=== PATIENT | male | born 1960 | race Caucasian/White ===

== ENCOUNTER 2019-06-22 10:00 | Inpatient (IN) | payer OTHER ==
[~2019-06-22] VITALS: Ht 182.9 cm; Wt 104.3 kg
[~2019-06-22 10:00] MED LIST: BUPR75TA5 PO; ENOX40SY4 SQ; ESCI20TA10 PO; HYDR-3237 PO; MULT-208 PO
[2019-06-22] MEDS ORDERED: BACITRACIN 50,000 UNIT ONE (10:32)
[2019-06-22] MEDS ORDERED: BUPIVACAINE/PF 0.5% ONE (10:32)
[2019-06-22] MEDS ORDERED: THROMBIN 5,000 UNIT VIAL TP ONE (10:32)
[2019-06-22] MEDS ORDERED: EPINEPHRINE 1 MG/ML, 1ML ONE (10:32)
[2019-06-22] MEDS ORDERED: LACTATED RINGERS 1,000 ML IV ONE (10:41)
[2019-06-22] MEDS ORDERED: GABAPENTIN 300 MG CAPSULE PO STA (10:42)
[2019-06-22] MEDS ORDERED: ACETAMINOPHEN 500 MG TABLET PO STA (10:42)
[2019-06-22 11:02] VITALS: BP 144/81
[2019-06-22] MEDS ORDERED: POTASSIUM PO (11:18)
[2019-06-22] MEDS ORDERED: ALBU8.5H8 INH (11:18)
[2019-06-22] MEDS ORDERED: NAPR220T77 PO (11:18)
[2019-06-22] MEDS ORDERED: [UNRECOGNIZED DRUG - OTHER] PO (11:18)
[2019-06-22] MEDS ORDERED: MAGN400T36 PO (11:18)
[2019-06-22] MEDS ORDERED: MIDAZOLAM 1 MG/ML, 2ML ONE (12:11)
[2019-06-22] MEDS ORDERED: FENTANYL PF 250 MCG/5ML ONE ×2 (12:11→13:41)
[2019-06-22] MEDS ORDERED: HYDROmorphone 2 MG/ML, 1ML IVPush PRN (13:30)
[2019-06-22] MEDS ORDERED: FENTANYL PF 100 MCG/2ML IV PRN (13:30)
[2019-06-22] MEDS ORDERED: PROMETHAZINE 25 MG/ML, 1ML IV PRN (13:30)
[2019-06-22] MEDS ORDERED: ACETAMINOPHEN 325 MG TABLET PO PRN ×2 (13:30→19:00)
[2019-06-22] MEDS ORDERED: LABETALOL 5MG/ML, 20ML IV PRN (13:30)
[2019-06-22] MEDS ORDERED: ALBUTEROL SULFATE 2.5 MG/3 ML NPPB PRN ×2 (13:30→18:30)
[2019-06-22] MEDS ORDERED: hydrALAzine 20 MG/ML, 1ML IV PRN (13:30)
[2019-06-22] MEDS ORDERED: MEPERIDINE/PF 25MG/0.5ML IVPush PRN (13:30)
[2019-06-22] MEDS ORDERED: KETOROLAC 30 MG/1 ML IV PRN (13:30)
[2019-06-22] MEDS ORDERED: OXYcodone 5 MG/5 ML ORAL.SOL UDC PO PRN (13:30)
[2019-06-22] MEDS ORDERED: DIAZEPAM 5 MG/ML, 2ML IVPush PRN (13:30)
[2019-06-22] MEDS ORDERED: GLYCOPYRROLATE 0.2MG/1ML, 5ML ONE (14:04)
[2019-06-22] MEDS ORDERED: ONDANSETRON 2MG/ML, 2ML ONE (14:04)
[2019-06-22] MEDS ORDERED: DEXAMETHASONE 4 MG/ML, 1ML ONE (14:04)
[2019-06-22] MEDS ORDERED: CEFAZOLIN 1,000 MG ONE (14:04)
[2019-06-22] MEDS ORDERED: ROCURONIUM 10MG/ML,5ML ONE (14:04)
[2019-06-22] MEDS ORDERED: NEOSTIGMINE 1 MG/ML, 10ML ONE (14:04)
[2019-06-22] MEDS ORDERED: SUCCINYLCHOLINE 20 MG/ML, 10ML ONE (14:04)
[2019-06-22] MEDS ORDERED: PROPOFOL 10 MG/ML, 20ML ONE (14:04)
[2019-06-22] MEDS ORDERED: DIAZEPAM 5 MG/ML, 2ML ONE (16:17)
[2019-06-22] MEDS ORDERED: PROMETHAZINE 25 MG/ML, 1ML ONE (16:43)
[2019-06-22] MEDS ORDERED: METHOCARBAMOL 1,000 MG in DEXTROSE 5% 100 ML IV ONE ×2 (17:00→19:30)
[2019-06-22] MEDS ORDERED: BISACODYL 10 MG SUPP PR PRN (18:30)
[2019-06-22] MEDS ORDERED: DIPHENHYDRAMINE 25 MG CAPSULE PO PRN (18:30)
[2019-06-22] MEDS ORDERED: morphine SULFATE 10 MG/ML, 1ML IV PRN (18:30)
[2019-06-22] MEDS ORDERED: PROMETHAZINE 25 MG/ML, 1ML IM PRN (18:30)
[2019-06-22] MEDS ORDERED: MAGNESIUM HYDROXIDE 8%, 30ML UDC PO PRN (18:30)
[2019-06-22] MEDS ORDERED: HYDROcodone/APAP 10/325 MG TABLET PO PRN (18:30)
[2019-06-22] MEDS ORDERED: ONDANSETRON 2MG/ML, 2ML IV PRN (18:30)
[2019-06-22] MEDS ORDERED: DIPHENHYDRAMINE 50 MG/ML, 1ML IVPush PRN (18:30)
[2019-06-22] MEDS ORDERED: DIPHENHYDRAMINE 50 MG/ML, 1ML IM PRN (18:30)
[2019-06-22] MEDS ORDERED: ACETAMINOPHEN 650 MG SUPP PR PRN (19:00)
[2019-06-22] MEDS: HYDROcodone/APAP 5/325 TABLET PO PRN ×2 (20:09→20:43)
[2019-06-22] MEDS: NS + 20MEQ KCL 1,000 ML IV SCH (20:09)
[2019-06-22] MEDS ORDERED: HEPARIN 5,000 UNITS/ML, 1ML SQ ONE (20:30)
[2019-06-22] MEDS: CEFAZOLIN PMX 2GM/50ML 50 ML IVPB SCH (21:53)
[2019-06-22 21:57] VITALS: BP 124/85
[2019-06-22 23:37] VITALS: BP 124/82
[2019-06-23] MEDS: METHOCARBAMOL 750 MG in DEXTROSE 5% 100 ML IV SCH ×2 (01:00→09:55)
[2019-06-23] MEDS: HYDROcodone/APAP 5/325 TABLET PO PRN ×2 (01:01→05:14)
[2019-06-23 02:57] VITALS: BP 135/86
[2019-06-23] MEDS ORDERED: METHOCARBAMOL 750 MG in DEXTROSE 5% 100 ML IV SCH (04:00)
[2019-06-23] MEDS: NS + 20MEQ KCL 1,000 ML IV SCH (04:30)
[2019-06-23] MEDS: DEXAMETHASONE 4 MG/ML, 1ML IV SCH ×2 (05:14→11:09)
[2019-06-23] MEDS: CEFAZOLIN PMX 2GM/50ML 50 ML IVPB SCH (06:08)
[2019-06-23 07:00] VITALS: BP 149/94
[2019-06-23] MEDS ORDERED: POTASSIUM CHLORIDE 99 MG HOMEMEDPO SCH (09:00)
[2019-06-23] MEDS ORDERED: ESCITALOPRAM 10MG TABLET PO SCH (09:00)
[2019-06-23] MEDS ORDERED: SENNA/DOCUSATE TABLET PO SCH (09:00)
[2019-06-23] MEDS ORDERED: MAGNESIUM HYDROXIDE 8%, 30ML UDC PO ONE (11:30)
[2019-06-23] MEDS ORDERED: HEPARIN 5,000 UNITS/ML, 1ML SQ ONE (11:30)
[2019-06-23 11:57] VITALS: BP 143/89
[2019-06-23] MEDS ORDERED: [UNRECOGNIZED DRUG - CODE] SQ (12:27)
[2019-06-23] MEDS ORDERED: METH4TAB2 PO (12:28)
[2019-06-23] MEDS ORDERED: HYDR-3240 PO (12:29)
[2019-06-23] MEDS ORDERED: METH750T87 PO (12:30)
[2019-06-24] MEDS ORDERED: METHOCARBAMOL 750 MG TABLET PO SCH (01:00)
== END 2019-06-23 13:30 | disposition home or self-care (01) | DRG 472 ==
LOC: ORIP 10:26 → 4NE 17:34 → DCLOUNGE 06-23 13:23
PROVIDERS: ADMIT Neurological Surgery; ATTEND Neurological Surgery
PROC: 0RB30ZZ Excision of Cervical Vertebral Disc, Open Approach (ICD-10-PCS; 2019-06-22)
PROC: 01N10ZZ Release Cervical Nerve, Open Approach (ICD-10-PCS; 2019-06-22)
PROC: 00NW0ZZ Release Cervical Spinal Cord, Open Approach (ICD-10-PCS; 2019-06-22)
PROC: 0RG10A0 Fusion of Cervical Vertebral Joint with Interbody Fusion Device, Anterior Approach, Anterior Column, Open Approach (ICD-10-PCS; principal; 2019-06-22 12:30)
DX: M50.023 Cervical disc disorder at C6-C7 level with myelopathy (principal); G95.20 Unspecified cord compression; M50.123 Cervical disc disorder at C6-C7 level with radiculopathy; M48.02 Spinal stenosis, cervical region; J45.909 Unspecified asthma, uncomplicated
CPT/HCPCS: 36415; 72040; S0020; 86850; 86900; C1713; C1776; G0378; J0171; J0690; J1100; J1644; J2250; J2405; J2550; J2704; J2710; J3010; J3360; J3480; C1762; J0330; J2800; J7120